=== PATIENT | male | born 1990 | race Caucasian/White ===

== ENCOUNTER 2017-04-06 19:27 | Inpatient (IN) | payer BC, OTHER ==
[~2017-04-06] VITALS: Ht 170.2 cm; Wt 90.7 kg
--- NOTE | 2017-04-06 21:30 | NUR ---
Pre admission note Pt seen in intake office. Pt appears sober and in stable condition. V/S WNL. Policies on medication disposal explained and understood by patient. Will admit patient to unit.
[2017-04-06 21:40] VITALS: BP 153/80
[2017-04-06] MEDS ORDERED: ACETAMINOPHEN 325 MG TABLET PO PRN (21:45)
[2017-04-06] MEDS ORDERED: ONDANSETRON 4 MG/2 ML VIAL IM PRN (21:45)
[2017-04-06] MEDS ORDERED: DICYCLOMINE HCL 20 MG TABLET PO PRN (21:45)
[2017-04-06] MEDS ORDERED: ONDANSETRON ODT 4 MG TAB.RAPDIS SL PRN (21:45)
[2017-04-06] MEDS ORDERED: METHOCARBAMOL 750 MG TABLET PO PRN (21:45)
[2017-04-06] MEDS ORDERED: BUPRENORPHINE HCL 2 MG TAB.SUBL SL PRN (21:45)
[2017-04-06] MEDS ORDERED: MIRALAX 17 GM POWD.PACK PO PRN (21:45)
[2017-04-06] MEDS ORDERED: IBUPROFEN 400 MG TABLET PO PRN (21:45)
[2017-04-06] MEDS ORDERED: LOPERAMIDE HCL 2 MG CAPSULE PO PRN ×2 (21:45)
[2017-04-06] MEDS ORDERED: HYDROXYZINE PAMOATE 25 MG CAPSULE PO PRN (21:45)
[2017-04-06] MEDS ORDERED: diphenhydrAMINE 50 MG CAPSULE PO PRN (21:45)
[2017-04-06] MEDS ORDERED: CLONIDINE HCL 0.1 MG TABLET PO PRN (21:45)
[2017-04-06] MEDS ORDERED: MAGNESIUM HYDROXIDE 30 ML LIQUID UDC PO PRN (21:45)
[2017-04-06] MEDS ORDERED: MAG HYDROX/AL HYDROX/SIMETH 30 ML LIQUID UDC PO PRN (21:45)
--- NOTE | 2017-04-06 21:55 | NUR ---
Admission note Pt is a 26 yo male, A+Ox4, presenting to [facility] for Opiate/Benzo/Cocaine/Marijuana dependence. Pt has NKA, is on full code status, and on Regular diet. Pt is 5'7" in height, and 200 LBS in weight. Pt has medical HX of Left thumb SX and Right ACL SX. Pt has family HX of DM from Father. Pt has no primary care provider. Pt has been using Heroin intranasal for 8 months, has reached a level of 0.5gm-1gm, and Last dose was 0.25gm on 04-03-17. Pt has been using Xanax intranasal for 8 months, has reached a level of 0.5mg/week, and last dose was 0.5mg "2 weeks ago". Pt has been using Cocaine intranasal for 8 months, has reached a level of 0.5gm/week, and last dose was 0.5gm "3 weeks ago". Pt has been smoking Marijuana for 7 years, has reached a level of 0.5gm-1gm/2 weeks, and last dose was 0.5gm-1gm on 04-02-17. Pt is not taking any home medications. Pt has HX of previous Detox/Rehab for 30 days @ [facility] in [place], [place] in 2016 and continued sobriety for a total of 90 days. This was the patients last time sober. Pt has been a cigarette smoker for 6 years and has reached a level of 15/daily. Pt appears sober and stable at this time. V/S WNL. No s/s of distress noted at this time. Respirations even and unlabored. Will continue to monitor.
[2017-04-06 22:09] LABS: *AMPHETAMINE, URINE NEGATIVE (NEGATIVE); *BARBITURATE, URINE NEGATIVE (NEGATIVE); *CANNABINOID, URINE POSITIVE (NEGATIVE); *COCCAINE, URINE NEGATIVE (NEGATIVE); *OPIATE, URINE POSITIVE (NEGATIVE); *PHENCYCLIDINE SCREEN,URINE NEGATIVE (NEGATIVE)
[2017-04-06 22:27] LABS: BASOPHILS # (AUTO) 0.3 K/uL (0.0-8.0); BASOPHILS % (AUTO) 2.7 % (0.0-2.0); EOSINOPHILS # (AUTO) 0.1 K/uL (0.0-0.7); EOSINOPHILS % (AUTO) 0.5 % (0.0-7.0); HEMATOCRIT 43.2 % (40-50); HEMOGLOBIN 14.6 G/DL (14.0-18.0); LYMPHOCYTES # (AUTO) 1.6 K/UL (0.8-4.8); LYMPHOCYTES % (AUTO) 15.2 % (20.5-51.5); MEAN CORPUSCULAR HEMOGLOBIN 29.2 UUG (27.0-31.0); MEAN CORPUSCULAR HGB CONC 34 g/dL (32.0-37.0); MEAN CORPUSCULAR VOLUME 86.4 FL (82.0-92.0); MONOCYTES # (AUTO) 0.8 K/UL (0.1-1.30); MONOCYTES % (AUTO) 7.6 % (0.0-11.0); NEUTROPHILS # (AUTO) 7.9 K/UL (1.8-8.9); PLATELET COUNT (AUTO) 356 K/UL (150-450); RED BLOOD CELL COUNT(AUTO) 5.01 MIL/UL (4.7-6.1); WHITE BLOOD COUNT (AUTO) 10.7 K/UL (4.0-11.2)
[2017-04-06 22:44] LABS: ALANINE AMINOTRANSFERASE 27 U/L (16-63); ALKALINE PHOSPHATASE 97 U/L (50-136); AMYLASE 17 U/L (25-115); ASPARTATE AMINOTRANSFERASE 13 U/L (15-37); BILIRUBIN,TOTAL 0.4 mg/dL (0.2-1.0); CARBON DIOXIDE 23 mmol/L (21-32); CHLORIDE 101 mmol/L (98-107); CREATININE 0.8 mg/dL (0.6-1.3); GLUCOSE 108 mg/dL (74-106); LIPASE 41 U/L (73-393); MAGNESIUM 2.1 mg/dL (1.8-2.4); POTASSIUM 3.5 mmol/L (3.5-5.1); UREA NITROGEN, BLOOD 6 mg/dL (7-18)
[2017-04-06 22:52] LABS: THYROID STIMULATING HORMONE 0.442 mIU/mL (0.358-3.740)
[2017-04-06 23:31] LABS: ETHANOL < 3 MG/DL (0-0)
[2017-04-07 00:18] VITALS: BP 136/87
[2017-04-07 04:33] VITALS: BP 130/81
--- NOTE | 2017-04-07 07:00 | NUR ---
End of shit note Pt is a 26 yo male, A+Ox4, presenting to [facility] for Opiate/Benzo/Cocaine/Marijuana dependence. Pt has NKA, is on full code status, and on Regular diet. Pt is on Fall precautions. Pt has HX of Left thumb SX and Right ACL SX. Pt is awaiting taper medication evaluation from in AM. Pt slept for a total of 7 HRS. Last COWS: 2 @0400. No s/s of distress noted at this time. Respirations even and unlabored. Will endorse to day shift nurse. Addendum: 04/07/17 at 0705 by EDELMIRA MCADAMS LVN End of shift note
--- NOTE | 2017-04-07 07:47 | NUR ---
START OF SHIFT NOTE Received report from night nurse, 26 yo male, A+Ox4, presenting to [facility] for Opiate/Benzo/Cocaine/Marijuana dependence. Pt has NKA, is on full code status, and on Regular diet. Pt is on Fall precautions. Pt reported PMH of Left thumb SX and Right ACL SX. Pt currently not on any taper but PRN's available for increased s/s of withdrawal. Currently pt is sleeping responsive to verbal and tactile stimuli. Breathing normal no SOB noted. All safety measures in place, Call light within reach. Will cont to monitor.
[2017-04-07 08:00] VITALS: BP 137/87
[2017-04-07] MEDS: MULTIVITAMINS,THERAPEUTIC TABLET PO SCH (08:28)
[2017-04-07] MEDS ORDERED: TUBERCULIN,PURIF.PROT.DERIV. 5 TU/0.1 ML TEST ID ONE (09:00)
[2017-04-07 12:00] VITALS: BP 129/72
[2017-04-07 16:00] VITALS: BP 134/80
[2017-04-07 17:20] LABS: *AMPHETAMINE, URINE NEGATIVE (NEGATIVE); *BARBITURATE, URINE NEGATIVE (NEGATIVE); *CANNABINOID, URINE POSITIVE (NEGATIVE); *COCCAINE, URINE NEGATIVE (NEGATIVE); *OPIATE, URINE NEGATIVE (NEGATIVE); *PHENCYCLIDINE SCREEN,URINE NEGATIVE (NEGATIVE)
--- NOTE | 2017-04-07 19:07 | NUR ---
END OF SHIFT NOTE Gave report to night nurse, 26 year old male admitted for Opiate/Benzo/Cocaine/Marijuana dependence. NKA, Full code status, and on Regular diet. Pt is on Fall precautions. Pt reported PMH of Left thumb SX and Right ACL SX. Pt currently not on any taper but PRN's available for increased s/s of withdrawal. Pt was not given any PRN Meds during shift. Pt compliant with TX and medication regimen. Vital signs remained stable. Pt scheduled for discharge in AM, urine drug screen provided and placed in the chart. Last COWS-1. All safety measures in placer, Call light within reach. Pt endorsed to night nurse in stable condition.
--- NOTE | 2017-04-07 19:08 | NUR ---
Start of shift note Pt is a 26 yo male, A+Ox4, presenting to [facility] for Opiate/Benzo/Cocaine/Marijuana dependence. Pt has NKA, is on full code status, and on Regular diet. Pt is on Fall precautions. Pt has HX of Left thumb SX and Right ACL SX. Pt is on PRN medications, tolerated well. No s/s of distress noted at this time. Respirations even and unlabored. Will continue to monitor. Addendum: 04/07/17 at 2121 by EDELMIRA MCADAMS LVN Pt is due for discharge tomorrow
[2017-04-07 20:21] VITALS: BP 141/80
[2017-04-08 00:52] VITALS: BP 135/75
[2017-04-08 04:32] VITALS: BP 132/79
--- NOTE | 2017-04-08 07:00 | NUR ---
End of shift note Pt is a 26 yo male, A+Ox4, presenting to [facility] for Opiate/Benzo/Cocaine/Marijuana dependence. Pt has NKA, is on full code status, and on Regular diet. Pt is on Fall precautions. Pt has HX of Left thumb SX and Right ACL SX. Pt is on PRN medications, tolerated well, and is due for discharge today. Pt slept for a total of 7 HRS. Last COWS: 0 @0400. No s/s of distress noted at this time. Respirations even and unlabored. Will endorse to day shift nurse.
--- NOTE | 2017-04-08 07:40 | NUR ---
START OF SHIFT NOTE Received report from night nurse, 26 year old male admitted for Opiate/Benzo/Cocaine/Marijuana dependence. Pt has NKA, is on full code status, and on Regular diet. Pt is on Fall precautions. Pt reported PMH of Left thumb SX and Right ACL SX. Pt currently not on any taper but PRN's available for increased s/s of withdrawal. Pt did not receive any PRN medication, last COWS was-0, slept for 7 hours. Received patient alert and oriented x4, Educated regarding plan of care for the day and medication regimen, and will educate regarding all discharge instructions. Safety measures in place. call light within reach, Will continue to monitor.
[2017-04-08 08:00] VITALS: BP 117/62
[2017-04-08] MEDS: MULTIVITAMINS,THERAPEUTIC TABLET PO SCH (08:21)
--- NOTE | 2017-04-08 09:52 | NUR ---
DISCHARGE NOTE Pt is in stable condition, Vital signs WNL. Pt is alert awake oriented x4. Skin intact, Pt denies any SI/HI ideation. All discharge paperwork completed dated and signed. Pt educated about discharge instructions, what to do after discharge, When to contact MD as well as the s/s reportable to MD, Pt verbalized understanding. Pt's last COWS was a 0. Pt was discharged from [facility] on 04/08/17 at 0952. Pt left the building with all of his belongings. pt did not bring any medications with him to the unit. MD has been contracted and notified of Pt's discharge.
[2017-04-09 07:06] LABS: HEPATITIS B SURFACE AG Negative (Negative)
== END 2017-04-08 09:52 | disposition other institution (70) | DRG 897 ==
LOC: SRC 20:24
PROVIDERS: ADMIT Internal Medicine; ATTEND Internal Medicine
PROC: HZ2ZZZZ Detoxification Services for Substance Abuse Treatment (ICD-10-PCS; principal; 2017-04-06)
DX: F11.23 Opioid dependence with withdrawal (principal); Z83.3 Family history of diabetes mellitus; F13.10 Sedative, hypnotic or anxiolytic abuse, uncomplicated; F17.210 Nicotine dependence, cigarettes, uncomplicated; F14.10 Cocaine abuse, uncomplicated
CPT/HCPCS: 36415; 71010; 80307; 80346; 80349; 80361; 83690; 83735; 84443; 85025; 86592; 86705; 86803; 87340; 87806; G0480